=== PATIENT | female | born 1990 | race Caucasian/White ===

== ENCOUNTER 2020-06-06 22:53 | Emergency (ER) | payer SELFPAY ==
--- NOTE | 2020-06-06 23:46 | ER Document Report ---
ED Medical Screen (RME) - General Chief Complaint: Dog Bite Stated Complaint: DOG BITE/LEFT SHOULDER AREA/SWELLING TO NECK Time Seen by Provider: 06/06/20 23:38 Mode of Arrival: Ambulatory Information source: Patient Notes: 29-year-old female presented to ED for complaint of a dog bite on 06/05/2020 at 7 PM. She states it is her friend's dog. She states another friend gave the dog to this friend says she does not know if the dog shots are up-to-date. Patient states the dog did not look sick. She states the dog is kept in a kennel at the friend's house. She states she would not want the rabies vaccinations at this time she will wait to see if the dog becomes sick. She states there is no pain in the site unless she moves the arm and then the pain gets up to a 3 out of 5. Give tetanus immunization a dose of Augmentin and have a chest x-ray and she will be seen by another provider. The dog bite form will also be completed. I have greeted and performed a rapid initial assessment of this patient. A comprehensive ED assessment and evaluation of the patient, analysis of test results and completion of medical decision making process will be conducted by an additional ED providers. Physical Exam - Vital signs Vitals: Temp Pulse Resp BP Pulse Ox 98.8 F 80 16 148/73 H 99 06/06/20 23:00 06/06/20 23:00 06/06/20 23:00 06/06/20 23:00 06/06/20 23:00 Course - Vital Signs Vital signs: Temp Pulse Resp BP Pulse Ox 98.8 F 80 16 148/73 H 99 06/06/20 23:00 06/06/20 23:00 06/06/20 23:00 06/06/20 23:00 06/06/20 23:00
[2020-06-06] MEDS ORDERED: DIPH/PERTUSS(ACELL)/TETANUS VAC/PF 0.5 ML SYR (>=10YO) IM ONE (23:47)
[2020-06-06] MEDS ORDERED: AMOXICILLIN TR/POT CLAVULANATE 500-125 MG TAB PO ONE (23:49)
--- NOTE | 2020-06-07 00:24 | RADIOLOGY REPORT (SQ) ---
EXAM DESCRIPTION: X-ray, two views of the chest CLINICAL HISTORY: 29 years Female, dog bite to left chest swelling to left neck COMPARISON: None. FINDINGS: Lungs: Lungs are clear. No pneumonia or edema. No pneumothorax or pleural effusion. Mediastinum: Cardiac and mediastinal silhouette are normal. Bones: Osseous structures are normal. IMPRESSION: Unremarkable radiographs of the chest
--- NOTE | 2020-06-07 01:10 | ER Document Report ---
HPI - HPI Time Seen by Provider: 06/06/20 23:38 Pain Level: 0 Notes: Otherwise healthy 29-year-old female presenting to the emergency department after having a dog bite approximately 26 hours ago. Patient reports she was playing at her friend's house when a new dog of theirs jumped up and bit her in the upper left chest wall. She reports that the dog was acting appropriately however there was a cat involved and the dog does not like cats. Patient filled out the dog bite form with the nurse. She is not sure when last tetanus shot was. - ROS Systems Reviewed and Negative: Yes All other systems reviewed and negative - CONSTITUTIONAL Constitutional: DENIES: Fever, Chills - EENT EENT: DENIES: Sore Throat, Ear Pain, Eye problems - NEURO Neurology: DENIES: Headache, Weakness, Vision blurred, Dizzinesss / Vertigo - CARDIOVASCULAR Cardiovascular: DENIES: Chest pain - RESPIRATORY Respiratory: DENIES: Trouble Breathing, Coughing - GASTROINTESTINAL Gastrointestinal: DENIES: Abdominal Pain, Black / Bloody Stools - URINARY Urinary: DENIES: Dysuria, Urgency, Frequency - MUSCULOSKELETAL Musculoskeletal: DENIES: Extremity pain Past Medical History - General Information source: Patient - Social History Smoking Status: Never Smoker Chew tobacco use (# tins/day): No Frequency of alcohol use: None Drug Abuse: None Family History: None Patient has homicidal ideation: No Psychiatric Medical History: Reports: Hx Anxiety Surgical Hx: Negative Vertical Provider Document - CONSTITUTIONAL Notes: PHYSICAL EXAMINATION: GENERAL: Well-appearing, well-nourished and in no acute distress. HEAD: Atraumatic, normocephalic. EYES: Pupils equal round extraocular movements intact, conjunctiva are normal. ENT: Nares patent NECK: Normal range of motion LUNGS: No respiratory distress Musculoskeletal: Normal range of motion NEUROLOGICAL: Normal speech, normal gait. PSYCH: Normal mood, normal affect. SKIN: Superficial abrasions noted to left chest wall near the axilla. Course - Re-evaluation Re-evalutation: Triage provider ordered a chest x-ray. This is negative. Patient has superficial abrasions to the left chest wall/axillary area. Patient given a tetanus shot in triage. She will be started on Augmentin as a precaution for infection. Patient declines rabies vaccination series. ED return precautions discussed, patient verbalized understanding and agreement with same. - Vital Signs Vital signs: Temp Pulse Resp BP Pulse Ox 98.8 F 80 16 148/73 H 99 06/06/20 23:41 06/06/20 23:00 06/06/20 23:00 06/06/20 23:00 06/06/20 23:00 Discharge - Discharge Clinical Impression: Animal bite Condition: Stable Disposition: HOME, SELF-CARE Additional Instructions: Animal Bites Animal bites are often heavily contaminated with bacteria. In spite of thorough cleansing and proper treatment, these wounds frequently become infected. Bite wounds of the hands are especially prone to complications. Bites are dressed, if possible. Large wounds may require suturing after internal cleansing. Because of infection risk, some large wounds must remain unstitched. Your doctor is trained to advise you on the best treatment for your bite. Call the doctor at once if the wound becomes red, swollen, warm, increasingly painful, or if it begins to drain. Danger signs also include red streaks up the involved extremity, swollen glands in the groin or under the arm, or fever and chills. The risk of rabies from domestic animals is very low. Bats, sick animals, and wild animals may expose you to rabies. The physician, or the health department, will inform you if you will need to receive the rabies vaccine. Augmentin Augmentin is a mixture of amoxicillin and clavulanate. Amoxicillin is a member of the penicillin family. It covers the germs likely to cause ear, bronchial, and urinary infections better than plain penicillin. The addition of clavulanate allows it to cover staph infections of the skin, as well as resistant cases of ear and sinus infections. Your physician has chosen Augmentin for you because of the special nature of your situation. Augmentin is best taken with meals. Nausea after taking the medication is rare, but can occur. Diarrhea can occur, particularly in small children. Vaginal yeast infections, and oral thrush in infants are also common. Contact your physician if these problems occur. Allergy to penicillins is common. If you have had an allergic reaction to any drug of the penicillin family, you should never take any other penicillin. Notify your doctor at once if you develop hives, shortness of breath, swelling, or faintness. Tetanus Immunization Given You have been given an immunization against tetanus. Please record this in your records. In general, a booster is needed only once every 10 years. The tetanus shot protects against tetanus or "lockjaw," which is a complication of certain wound infections (the tetanus shot cannot protect against the actual infection). The immunization site may become warm and red due to local reaction. If this occurs, apply warm compresses and take aspirin or ibuprofen to reduce inflammation and discomfort. Return for evaluation if the reaction becomes severe. Please take antibiotics as prescribed. Watch very closely for signs of infection to include increasing swelling, pain, redness, red streaking from the area, development of fever or any other worsening symptoms. Prescriptions: Amoxicillin/Potassium Clav [Augmentin 875-125 Tablet] 1 tab PO BID #14 tablet
[2020-06-07 01:23] VITALS: BP 140/70
== END 2020-06-07 01:22 | disposition home or self-care (01) ==
LOC: ER 22:53
DX: S20.372A Other superficial bite of left front wall of thorax, initial encounter (principal); W54.0XXA Bitten by dog, initial encounter; Y92.009 Unspecified place in unspecified non-institutional (private) residence as the place of occurrence of the external cause; Z23 Encounter for immunization
CPT/HCPCS: 71046; 90471; 90715; 99283